=== PATIENT | female | born 2000 | race Caucasian/White ===

== ENCOUNTER 2020-09-08 14:20 | Emergency (ER) | payer BC, MEDICAID ==
--- NOTE | 2020-09-08 16:35 | EDM.PDOC ---
ED HPI GENERAL MEDICAL PROBLEM - General Chief Complaint: Abdominal Pain Stated Complaint: PAIN IN ABD Time Seen by Provider: 09/08/20 16:33 Source of Information: Reports: Patient, Family History Limitations: Reports: No Limitations - History of Present Illness INITIAL COMMENTS - FREE TEXT/NARRATIVE: pt has not had a period since early jun. She has had numerous preg test that have been neg. She had her urine checked recently at that was clear. She has a history of some large ovarian cysts. Onset: Gradual Duration: Day(s): Location: Reports: Abdomen, Other (no period since Jun. ) Associated Symptoms: Reports: No Other Symptoms Pelvic Pain Score (Numeric/FACES): 7 - Related Data Allergies Allergy/AdvReac Type Severity Reaction Status Date / Time amoxicillin Allergy Hives Verified 09/08/20 15:39 dog dander Allergy Rash Verified 09/08/20 15:39 egg Allergy Rash Verified 09/08/20 15:39 milk Allergy Edema Verified 09/08/20 15:39 orange Allergy Rash Verified 09/08/20 15:39 tomato Allergy Rash Verified 09/08/20 15:39 CATS Allergy Rash Uncoded 09/08/20 15:39 SLIPPY [place] BACK Allergy Rash Uncoded 09/08/20 15:39 Home Meds: Home Meds Albuterol Sulfate [Albuterol Sulfate Hfa] 8.5 gm IH ASDIRECTED PRN 09/08/20 [History] Past Medical History HEENT History: Reports: None Cardiovascular History: Reports: None Respiratory History: Reports: Asthma Genitourinary History: Reports: None 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, 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 Musculoskeletal History: Reports: None Neurological History: Reports: None Psychiatric History: Reports: None Endocrine/Metabolic History: Reports: None Hematologic History: Reports: None Immunologic History: Reports: None Oncologic (Cancer) History: Reports: None Dermatologic History: Reports: Psoriasis - Infectious Disease History Infectious Disease History: Reports: None - Past Surgical History Other GI Surgeries/Procedures: LAP Social & Family History - Tobacco Use Tobacco Use Status *Q: Never Tobacco User - Caffeine Use Caffeine Use: Reports: None - Recreational Drug Use Recreational Drug Use: No ED ROS GENERAL - Review of Systems Review Of Systems: See Below Constitutional: Reports: No Symptoms HEENT: Reports: No Symptoms Respiratory: Reports: No Symptoms Cardiovascular: Reports: No Symptoms Endocrine: Reports: No Symptoms GI/Abdominal: Reports: No Symptoms, Abdominal Pain, Other (lower abdomanal pain) : Reports: No Symptoms Musculoskeletal: Reports: No Symptoms Skin: Reports: No Symptoms ED EXAM, GI/ABD - Physical Exam Exam: See Below Text/Narrative:: pt arrived with pain in the lower abdoman and a history of endometrosuis Exam Limited By: No Limitations General Appearance: Alert, Anxious, Moderate Distress Ears: Normal TMs Nose: Normal Inspection Throat/Mouth: Normal Inspection Head: Atraumatic Neck: Normal Inspection Respiratory/Chest: No Respiratory Distress Cardiovascular: Regular Rate, Rhythm GI/Abdominal Exam: Other (mild lower abdomanal tenderness) (Female) Exam: Deferred Rectal (Female) Exam: Deferred Back Exam: Normal Inspection Extremities: Normal Inspection Neurological: Alert, Oriented, Normal Cognition Psychiatric: Normal Affect Course - Vital Signs Last Recorded V/S: Last Vital Signs Temp 37.4 C 09/08/20 15:31 Pulse 88 09/08/20 15:31 Resp 16 09/08/20 15:31 BP Pulse Ox 99 09/08/20 15:31 - Orders/Labs/Meds Orders: Active Orders 24 hr Category Date Time Status Pelvis Non OB Comp [US] Stat Exams 09/08/20 16:31 Ordered Transvaginal Non OB [US] Stat Exams 09/08/20 Ordered Labs: Laboratory Tests 09/08/20 09/08/20 09/08/20 Range/Units 16:38 16:44 16:44 WBC 8.6 (4.5-11.0) K/uL RBC 4.47 (3.30-5.50) M/uL Hgb 13.1 (12.0-15.0) g/dL Hct 38.9 (36.0-48.0) % MCV 87 (80-98) fL MCH 29 (27-31) pg MCHC 34 (32-36) % Plt Count 292 (150-400) K/uL Neut % (Auto) 62 (36-66) % Lymph % (Auto) 24 (24-44) % [place] % (Auto) 8 H (2-6) % Eos % (Auto) 6 H (2-4) % Baso % (Auto) 1 (0-1) % Sodium (140-148) mmol/L Potassium (3.6-5.2) mmol/L Chloride (100-108) mmol/L Carbon Dioxide (21-32) mmol/L Anion Gap (5.0-14.0) mmol/L BUN (7-18) mg/dL Creatinine (0.6-1.0) mg/dL Est Cr Clr Drug Dosing Estimated GFR (MDRD) (>60) Glucose (74-106) mg/dL Calcium (8.5-10.1) mg/dL Total Bilirubin (0.2-1.0) mg/dL AST (15-37) U/L ALT (12-78) U/L Alkaline Phosphatase (46-116) U/L C-Reactive Protein < 0.05 (0.0-0.3) mg/dL Total Protein (6.4-8.2) g/dL Albumin (3.4-5.0) g/dL Globulin (2.3-3.5) g/dL Albumin/Globulin Ratio (1.2-2.2) HCG, Quant 3 (0-6) mIU/mL 12/19/20 Range/Units 16:44 WBC (4.5-11.0) K/uL RBC (3.30-5.50) M/uL Hgb (12.0-15.0) g/dL Hct (36.0-48.0) % MCV (80-98) fL MCH (27-31) pg MCHC (32-36) % Plt Count (150-400) K/uL Neut % (Auto) (36-66) % Lymph % (Auto) (24-44) % [place] % (Auto) (2-6) % Eos % (Auto) (2-4) % Baso % (Auto) (0-1) % Sodium 141 (140-148) mmol/L Potassium 3.6 (3.6-5.2) mmol/L Chloride 105 (100-108) mmol/L Carbon Dioxide 26 (21-32) mmol/L Anion Gap 9.8 (5.0-14.0) mmol/L BUN 8 (7-18) mg/dL Creatinine 0.8 (0.6-1.0) mg/dL Est Cr Clr Drug Dosing TNP Estimated GFR (MDRD) > 60 (>60) Glucose 111 H (74-106) mg/dL Calcium 8.4 L (8.5-10.1) mg/dL Total Bilirubin 0.5 (0.2-1.0) mg/dL AST 9 L (15-37) U/L ALT 32 (12-78) U/L Alkaline Phosphatase 58 (46-116) U/L C-Reactive Protein (0.0-0.3) mg/dL Total Protein 6.7 (6.4-8.2) g/dL Albumin 3.7 (3.4-5.0) g/dL Globulin 3.0 (2.3-3.5) g/dL Albumin/Globulin Ratio 1.2 (1.2-2.2) HCG, Quant (0-6) mIU/mL - Re-Assessments/Exams Free Text/Narrative Re-Assessment/Exam: 09/08/20 18:00 pelvic US was neg for ovarian cyst. Her quantative preg test was neg. will refer to obgyn. Departure - Departure Time of Disposition: 17:45 Disposition: Home, Self-Care 01 Condition: Fair Clinical Impression: Endometriosis, Polycystic ovaries - Discharge Information Referrals: PCP,None [Primary Care Provider] - Forms: ED Department Discharge Care Plan Goals: appt with automobile body customizer [place] for further work up. tylenol and motrin for pain. Sepsis Event Note (ED) - Evaluation Sepsis Screening Result: No Definite Risk - Focused Exam Vital Signs: Vital Signs Temp Pulse Resp Pulse Ox 09/08/20 15:31 37.4 C 88 16 99 - My Orders Last 24 Hours: My Active Orders 09/08/20 Transvaginal Non OB [US] Stat 09/08/20 16:31 Pelvis Non OB Comp [US] Stat - Assessment/Plan Last 24 Hours: My Active Orders 09/08/20 Transvaginal Non OB [US] Stat 09/08/20 16:31 Pelvis Non OB Comp [US] Stat
--- NOTE | 2020-09-08 18:11 | CRLUS ---
INDICATION: Possible ovarian cyst with pelvic pain. TECHNIQUE: Transabdominal and transvaginal pelvic ultrasound performed including grayscale/2D, color Doppler, and spectral Doppler imaging with the latter imaging performed to confirm blood flow in the ovaries and exclude ovarian torsion. FINDINGS: Uterus measures 7.3 x 4.7 x 5.1 cm. Right ovary measures 3.7 x 2.5 x 2.4 cm and left ovary measures 2.8 x 1.9 x 2.9 cm. No myometrial masses. The endometrial stripe in the fundal region is mildly bulbous but still falls within normal limits and is homogeneous measuring 8-9 mm in transverse diameter. No discrete focal abnormalities in the endometrium. Moderate amount of complex fluid in the pelvis posteriorly contains internal echoes/debris and this could be related to hemorrhagic products or other complex inflammatory fluid. Etiology of this fluid is uncertain. Multiple simple and complex cysts in follicles which are very small in size in both ovaries should be physiologic. One of these small cysts or follicles in the right ovary contains internal debris and is likely a tiny hemorrhagic cyst. Arterial and venous blood flow is confirmed to both ovaries. The follicles in the left ovary have a peripheral predominance. Remainder negative. IMPRESSION: 1. Moderate amount of complex fluid in the pelvis posteriorly contains internal echoes and debris and could be related to hemorrhagic products from a ruptured hemorrhagic ovarian cyst but such fluid is not specific and can also be seen related to an inflammatory etiology or other etiologies. 2. The ovaries are unremarkable containing multiple simple and complex follicles and cysts which are all very small in size with one very small-sized hemorrhagic cyst in the right ovary. Arterial and venous blood flow confirmed to both ovaries without evidence of ovarian torsion. No dominant hemorrhagic ovarian cyst in either ovary. 3. Uterus and endometrium unremarkable. Dictated by Basil Leal MD @ Sep 08 2020 6:09PM Signed by Dr. Basil Leal @ Sep 08 2020 6:09PM
== END 2020-09-08 18:04 | disposition home or self-care (01) ==
LOC: JP.ED 14:20
DX: N80.9 Endometriosis, unspecified (principal); J45.909 Unspecified asthma, uncomplicated; E28.2 Polycystic ovarian syndrome; Z88.1 Allergy status to other antibiotic agents; Z91.048 Other nonmedicinal substance allergy status; Z91.012 Allergy to eggs; Z91.011 Allergy to milk products; Z91.018 Allergy to other foods
CPT/HCPCS: 36415; 76830; 76856; 80053; 84702; 85025; 86140; 99282; 99284-25

== ENCOUNTER 2020-11-10 20:09 | Emergency (ER) | payer BC ==
[2020-11-10] MEDS ORDERED: Ondansetron 4 MG/2 ML SDV IVPUSH ONE (20:14)
[2020-11-10] MEDS ORDERED: HYDROmorphone 0.5 MG/0.5 ML Syringe IVPUSH ONE (20:14)
[2020-11-10] MEDS ORDERED: Sodium Chloride 0.9% 1,000 ML IV SCH (20:15)
[2020-11-10] MEDS ORDERED: Acetaminophen/oxyCODONE 325-5 MG Tab PO PRN (22:09)
--- NOTE | 2020-11-10 22:10 | EDM.PDOC ---
ED HPI GENERAL MEDICAL PROBLEM - General Chief Complaint: Abdominal Pain Stated Complaint: ABDOMINAL PAIN Time Seen by Provider: 11/10/20 20:20 Source of Information: Reports: Patient History Limitations: Reports: No Limitations - History of Present Illness INITIAL COMMENTS - FREE TEXT/NARRATIVE: pt arrived with very severe pelvic pain which had come on suddenly. Her period was late. Onset: Today, Sudden Duration: Hour(s): Location: Reports: Abdomen Associated Symptoms: Reports: No Other Symptoms, Nausea/Vomiting Lower Abdominal Pain Score (Numeric/FACES): 8 - Related Data Allergies Allergy/AdvReac Type Severity Reaction Status Date / Time amoxicillin Allergy Hives Verified 11/10/20 20:43 dog dander Allergy Rash Verified 11/10/20 20:43 egg Allergy Rash Verified 11/10/20 20:43 milk Allergy Edema Verified 11/10/20 20:43 orange Allergy Rash Verified 11/10/20 20:43 tomato Allergy Rash Verified 11/10/20 20:43 CATS Allergy Rash Uncoded 11/10/20 20:43 SLIPPY [place] BACK Allergy Rash Uncoded 11/10/20 20:43 Home Meds: Home Meds Albuterol Sulfate [Albuterol Sulfate Hfa] 8.5 gm IH ASDIRECTED PRN 09/08/20 [History] Loratadine [Claritin] 1 tab PO DAILY 11/10/20 [History] Past Medical History HEENT History: Reports: None Cardiovascular History: Reports: None Respiratory History: Reports: Asthma Genitourinary History: Reports: None 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, 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 Musculoskeletal History: Reports: None Neurological History: Reports: None Psychiatric History: Reports: None Endocrine/Metabolic History: Reports: None Hematologic History: Reports: None Immunologic History: Reports: None Oncologic (Cancer) History: Reports: None Dermatologic History: Reports: Psoriasis - Infectious Disease History Infectious Disease History: Reports: None - Past Surgical History Other GI Surgeries/Procedures: LAP Social & Family History - Family History Family Medical History: No Pertinent Family History - Tobacco Use Tobacco Use Status *Q: Never Tobacco User - Caffeine Use Caffeine Use: Reports: None - Recreational Drug Use Recreational Drug Use: No ED ROS GENERAL - Review of Systems Review Of Systems: See Below Constitutional: Reports: No Symptoms HEENT: Reports: No Symptoms Respiratory: Reports: No Symptoms Cardiovascular: Reports: No Symptoms Endocrine: Reports: No Symptoms GI/Abdominal: Reports: Abdominal Pain, Other ( severe lower pelvic pain. ) : Reports: No Symptoms Musculoskeletal: Reports: No Symptoms Skin: Reports: No Symptoms ED EXAM, GI/ABD - Physical Exam Exam: See Below Text/Narrative:: pt has a history of poycystic ovaries and she thinks she could be . Exam Limited By: No Limitations General Appearance: Alert, Anxious, Severe Distress, Other ( pt was crying out on arrival. ) Ears: Normal TMs Nose: Normal Inspection Throat/Mouth: Normal Inspection Head: Atraumatic Neck: Normal Inspection Respiratory/Chest: No Respiratory Distress Cardiovascular: Regular Rate, Rhythm GI/Abdominal Exam: Other ( Pt is tender in the suprapupic area. ) (Female) Exam: Deferred Rectal (Female) Exam: Deferred Back Exam: Normal Inspection Extremities: Normal Inspection Neurological: Alert, Oriented, Normal Cognition Course - Vital Signs Last Recorded V/S: Last Vital Signs Temp 36.7 C 11/10/20 20:44 Pulse 112 H 11/10/20 20:44 Resp 20 11/10/20 20:44 BP 127/85 11/10/20 20:44 Pulse Ox 96 11/10/20 20:44 - Orders/Labs/Meds Orders: Active Orders 24 hr Category Date Time Status Pelvis Non OB Ltd [US] Stat Exams 11/10/20 20:21 Taken VL Duplex Abd Pel Ret Ltd [US] Stat Exams 11/10/20 21:59 Taken Acetaminophen/oxyCODONE [Percocet 325-5 MG] Med 11/10/20 22:09 Active 1 tab PO ONETIME PRN Sodium Chloride 0.9% [Normal Saline] 1,000 ml Med 11/10/20 20:15 Active IV ASDIRECTED Medication Orders Sodium Chloride (Normal Saline) 1,000 mls @ 999 mls/hr IV ASDIRECTED MIRI Last Admin: 11/10/20 20:25 Dose: 999 mls/hr Documented by: FLOR Oxycodone/Acetaminophen (Percocet 325-5 Mg) 1 tab PO ONETIME PRN PRN Reason: Abdominal Pain Labs: Laboratory Tests 11/10/20 11/10/20 11/10/20 Range/Units 20:29 20:29 20:29 WBC 9.8 (4.5-11.0) K/uL RBC 4.60 (3.30-5.50) M/uL Hgb 13.8 (12.0-15.0) g/dL Hct 38.9 (36.0-48.0) % MCV 85 (80-98) fL MCH 30 (27-31) pg MCHC 36 (32-36) % Plt Count 279 (150-400) K/uL Neut % (Auto) 62 (36-66) % Lymph % (Auto) 25 (24-44) % [place] % (Auto) 8 H (2-6) % Eos % (Auto) 5 H (2-4) % Baso % (Auto) 0 (0-1) % Sodium 140 (140-148) mmol/L Potassium 3.3 L (3.6-5.2) mmol/L Chloride 106 (100-108) mmol/L Carbon Dioxide 23 (21-32) mmol/L Anion Gap 14.3 H (5.0-14.0) mmol/L BUN 10 (7-18) mg/dL Creatinine 0.8 (0.6-1.0) mg/dL Est Cr Clr Drug Dosing 88.72 mL/min Estimated GFR (MDRD) > 60 (>60) Glucose 155 H (74-106) mg/dL Calcium 9.0 (8.5-10.1) mg/dL Total Bilirubin 0.5 (0.2-1.0) mg/dL AST 14 L (15-37) U/L ALT 23 (12-78) U/L Alkaline Phosphatase 67 (46-116) U/L Total Protein 6.8 (6.4-8.2) g/dL Albumin 3.7 (3.4-5.0) g/dL Globulin 3.1 (2.3-3.5) g/dL Albumin/Globulin Ratio 1.2 (1.2-2.2) HCG, Quant 3 (0-6) mIU/mL Urine Color (YELLOW) Urine Appearance (CLEAR) Urine pH (5.0-8.0) Ur Specific [place] (1.008-1.030) Urine Protein (NEGATIVE) mg/dL Urine Glucose (UA) (NEGATIVE) mg/dL Urine Ketones (NEGATIVE) mg/dL Urine Occult Blood (NEGATIVE) Urine Nitrite (NEGATIVE) Urine Bilirubin (NEGATIVE) Urine Urobilinogen (0.2-1.0) EU/dL Ur Leukocyte Esterase (NEGATIVE) Urine RBC (0-5) Urine WBC (0-5) Ur Epithelial Cells Amorphous Sediment Urine Bacteria Urine Mucus 11/10/20 Range/Units 20:47 WBC (4.5-11.0) K/uL RBC (3.30-5.50) M/uL Hgb (12.0-15.0) g/dL Hct (36.0-48.0) % MCV (80-98) fL MCH (27-31) pg MCHC (32-36) % Plt Count (150-400) K/uL Neut % (Auto) (36-66) % Lymph % (Auto) (24-44) % [place] % (Auto) (2-6) % Eos % (Auto) (2-4) % Baso % (Auto) (0-1) % Sodium (140-148) mmol/L Potassium (3.6-5.2) mmol/L Chloride (100-108) mmol/L Carbon Dioxide (21-32) mmol/L Anion Gap (5.0-14.0) mmol/L BUN (7-18) mg/dL Creatinine (0.6-1.0) mg/dL Est Cr Clr Drug Dosing mL/min Estimated GFR (MDRD) (>60) Glucose (74-106) mg/dL Calcium (8.5-10.1) mg/dL Total Bilirubin (0.2-1.0) mg/dL AST (15-37) U/L ALT (12-78) U/L Alkaline Phosphatase (46-116) U/L Total Protein (6.4-8.2) g/dL Albumin (3.4-5.0) g/dL Globulin (2.3-3.5) g/dL Albumin/Globulin Ratio (1.2-2.2) HCG, Quant (0-6) mIU/mL Urine Color Yellow (YELLOW) Urine Appearance Clear (CLEAR) Urine pH 8.5 H (5.0-8.0) Ur Specific [place] 1.020 (1.008-1.030) Urine Protein Negative (NEGATIVE) mg/dL Urine Glucose (UA) Negative (NEGATIVE) mg/dL Urine Ketones Negative (NEGATIVE) mg/dL Urine Occult Blood Negative (NEGATIVE) Urine Nitrite Negative (NEGATIVE) Urine Bilirubin Negative (NEGATIVE) Urine Urobilinogen 0.2 (0.2-1.0) EU/dL Ur Leukocyte Esterase Negative (NEGATIVE) Urine RBC 0-5 (0-5) Urine WBC 0-5 (0-5) Ur Epithelial Cells Few Amorphous Sediment Occasional Urine Bacteria Occasional Urine Mucus Few Meds: Medications Generic Name Dose Route Start Last Admin Trade Name Freq PRN Reason Stop Dose Admin Sodium Chloride 1,000 mls @ 999 mls/hr 11/10/20 20:15 11/10/20 20:25 Normal Saline IV 999 mls/hr ASDIRECTED MIRI Administration Oxycodone/Acetaminophen 1 tab 11/10/20 22:09 Percocet 325-5 Mg PO ONETIME PRN Abdominal Pain Discontinued Medications Generic Name Dose Route Start Last Admin Trade Name Freq PRN Reason Stop Dose Admin Hydromorphone HCl 0.5 mg 11/10/20 20:14 11/10/20 20:27 Dilaudid IVPUSH 11/10/20 20:15 0.5 mg ONETIME ONE Administration Ondansetron HCl 4 mg 11/10/20 20:14 11/10/20 20:32 Zofran IVPUSH 11/10/20 20:15 4 mg ONETIME ONE Administration - Re-Assessments/Exams Free Text/Narrative Re-Assessment/Exam: 11/10/20 22:19 pt was given dilaudid .5 mg. She did get good relief. She had labs and her quantative hcg was neg. She is very early however. She had a US which showed some free fluid so she could have ruptured a ovarian cyst. Departure - Departure Time of Disposition: 22:10 Disposition: Home, Self-Care 01 Condition: Fair Clinical Impression: Pelvic pain, Ruptured ovarian cyst - Discharge Information Referrals: PCP,None [Primary Care Provider] - Forms: ED Department Discharge Care Plan Goals: rtc in 5 days for a repeat quantative hcg. norco 5/325 q6h prn for pain, #[address] should notify her of the repeat quantative HCG Sepsis Event Note (ED) - Evaluation Sepsis Screening Result: Possible Sepsis Risk - Focused Exam Vital Signs: Vital Signs Temp Pulse Resp BP Pulse Ox 11/10/20 20:44 36.7 C 112 H 20 127/85 96 11/10/20 20:16 36.7 C 112 H 26 H 127/85 100 - My Orders Last 24 Hours: My Active Orders 11/10/20 20:15 Sodium Chloride 0.9% [Normal Saline] 1,000 ml IV ASDIRECTED 11/10/20 20:21 Pelvis Non OB Ltd [US] Stat 11/10/20 21:59 VL Duplex Abd Pel Ret Ltd [US] Stat 11/10/20 22:09 Acetaminophen/oxyCODONE [Percocet 325-5 MG] 1 tab PO ONETIME PRN - Assessment/Plan Last 24 Hours: My Active Orders 11/10/20 20:15 Sodium Chloride 0.9% [Normal Saline] 1,000 ml IV ASDIRECTED 11/10/20 20:21 Pelvis Non OB Ltd [US] Stat 11/10/20 21:59 VL Duplex Abd Pel Ret Ltd [US] Stat 11/10/20 22:09 Acetaminophen/oxyCODONE [Percocet 325-5 MG] 1 tab PO ONETIME PRN
--- NOTE | 2020-11-12 09:48 | US ---
VL Duplex Abd Pel Ret Ltd, Pelvis Non OB Ltd CLINICAL HISTORY: Left pelvic pain FINDINGS: Real-time transabdominal and transvaginal images were obtained through the pelvis. Uterus measures 8.4 x 3.4 x 4.8 cm. No mass is identified. The endometrial stripe measures 7 mm. Right ovary measures 2.9 x 2.9 x 1.5 cm. Left ovary measures 4.8 x 3.8 x 2.2 cm. It contains 1.8 x 1.2 x 1.8 cm cyst. There is normal flow in both. There is some free fluid in the cul-de-sac IMPRESSION: Small amount of free pelvic fluid. This is nonspecific 1.8 x 1.2 x 1.8 cm left the ovarian cyst
== END 2020-11-10 22:29 | disposition home or self-care (01) ==
LOC: JP.ED 20:09
DX: N83.202 Unspecified ovarian cyst, left side (principal); J45.909 Unspecified asthma, uncomplicated; Z88.0 Allergy status to penicillin; Z91.048 Other nonmedicinal substance allergy status; Z91.011 Allergy to milk products; Z91.012 Allergy to eggs; Z91.018 Allergy to other foods
CPT/HCPCS: 36415; 76857; 80053; 81001; 84702; 85025; 93976; 96374; 96375; 99284; J1170; J2405; J7030; 99283

== ENCOUNTER 2021-09-30 00:24 | Inpatient (IN) | payer OTHER ==
[2021-09-30 05:06] LABS: CORONAVIRUS COVID-19 NAA NEGATIVE (NEGATIVE)
[2021-09-30] MEDS ORDERED: Sodium Chloride 0.9% 10 ML Syringe FLUSH PRN ×3 (05:08→06:54)
[2021-09-30] MEDS: Lactated Ringers 1,000 ML IV ONE ×2 (05:10→07:00)
[2021-09-30] MEDS ORDERED: ePHEDrine 50 MG/ML SDV IVPUSH PRN (05:12)
[2021-09-30] MEDS ORDERED: Naloxone 0.4 MG/ML SDV IVPUSH PRN (05:12)
[2021-09-30] MEDS ORDERED: diphenhydrAMINE 50 MG/ML SDV IVPUSH PRN ×2 (05:12)
[2021-09-30] MEDS ORDERED: Sodium Chloride 0.9% 1,000 ML IV ONE (05:13)
[2021-09-30] MEDS ORDERED: Ropivacaine 200 MG in Premix Bag 1 BAG EPIDUR SCH (05:15)
[2021-09-30] MEDS ORDERED: Clindamycin Phosphate 900 MG/6 ML SDV IV SCH (05:15)
[2021-09-30] MEDS: Clindamycin Phosphate 900 MG in Sodium Chloride 0.9% 100 ML IV SCH ×2 (06:03→15:21)
[2021-09-30] MEDS: Lactated Ringers 1,000 ML IV SCH ×2 (06:05→10:09)
[2021-09-30] MEDS ORDERED: Ropivacaine 100 ML ONE (06:53)
[2021-09-30] MEDS ORDERED: Lactated Ringers 500 ML IV SCH (07:00)
--- NOTE | 2021-09-30 07:13 | PCM.LDHP ---
L&D History of Present Illness - General Date of Service: 09/30/21 (labor) Admit Problem/Dx: Patient Status Order with Admit Dx/Problem 09/30/21 05:09 Patient Status [ADT] Routine 09/30/21 06:56 Patient Status [ADT] Routine Admission Diagnosis/Problem Admission Diagnosis/Problem Labor established Source of Information: Patient History Limitations: Reports: No Limitations - History of Present Illness Timing/Duration: Reports: minutes: (2) Location, : Reports: Lower back Quality: Reports: Pressure Severity: Severe Worsens with: Reports: None - Related Data Allergies/Adverse Reactions: Allergies Allergy/AdvReac Type Severity Reaction Status Date / Time amoxicillin Allergy Hives Verified 09/30/21 00:35 dog dander Allergy Rash Verified 09/30/21 00:35 egg Allergy Rash Verified 09/30/21 00:35 milk Allergy Edema Verified 09/30/21 00:35 orange Allergy Rash Verified 09/30/21 00:35 tomato Allergy Rash Verified 09/30/21 00:35 CATS Allergy Rash Uncoded 11/10/20 20:43 SLIPPY EL[place] BACK Allergy Rash Uncoded 11/10/20 20:43 Home Medications: Home Meds Albuterol Sulfate [Albuterol Sulfate Hfa] 8.5 gm IH ASDIRECTED PRN 09/08/20 [History] Folic Acid 0.4 mg PO DAILY 09/06/21 [History] Pnv No.95/Ferrous Fum/Folic AC [ Caplet] 1 tab PO DAILY 09/06/21 [History] Past Medical History HEENT History: Reports: None Cardiovascular History: Reports: None Respiratory History: Reports: Asthma Genitourinary History: Reports: None 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: Endometriosis, 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, : 1 Para: 0 LMP (Approximate): Musculoskeletal History: Reports: None Neurological History: Reports: None Psychiatric History: Reports: None Endocrine/Metabolic History: Reports: None Hematologic History: Reports: None Immunologic History: Reports: None Oncologic (Cancer) History: Reports: None Dermatologic History: Reports: Psoriasis - Infectious Disease History Infectious Disease History: Reports: None - Past Surgical History Other GI Surgeries/Procedures: Laproscopic procedure for endometrosis Social & Family History - Family History Family Medical History: No Pertinent Family History - Tobacco Use Tobacco Use Status *Q: Never Tobacco User - Caffeine Use Caffeine Use: Reports: None - Recreational Drug Use Recreational Drug Use: No H&P Review of Systems - Review of Systems: Review Of Systems: See Below L&D Exam - Exam Exam: See Below - Vital Signs Vital Signs: Last Vital Signs Temp 97.2 F 09/30/21 03:38 Pulse 83 09/30/21 03:38 Resp 16 09/30/21 06:31 BP 127/91 H 09/30/21 03:38 Pulse Ox 97 09/30/21 03:38 Weight: 190 lb 14.725 oz - OB Specific Contraction Duration (sec): 45 - 115 Contraction Frequency (min): 1.5 - 3.5 Contraction Intensity: Moderate Movement: Active Heart Tones: Present Heart Rate (FHR) Variability: Moderate (6-25 bpm) Presentation: Vertex - Higuera Score Higuera Score Cervix Position: Anterior Higuera Score Consistency: Soft Higuera Score Effacement: >80% Higuera Score Dilation: 3-4 cm Higuera Score 's Station: -1 ,0 Higuera Score Total: 11 - Exam General: Alert, Oriented HEENT: PERRLA, Mucosa Moist & [place] Neck: Supple Lungs: Normal Respiratory Effort Cardiovascular: Regular Rate GI/Abdominal Exam: Soft Rectal Exam: Normal Exam Genitourinary: Normal external exam, Cervical dilitation, Enlarged uterus Back Exam: Normal Inspection, Full Range of Motion Extremities: No Pedal Edema, Normal Capillary Refill Skin: Warm Neurological: Cranial Nerves Intact Psychiatric: Alert, Normal Affect, Normal Mood - Patient Data Lab Results Last 24 hrs: Laboratory Results - last 24 hr 09/30/21 09/30/21 09/30/21 Range/Units 00:34 03:10 03:36 WBC 15.3 H (3.2-11.0) K/uL RBC 4.20 (3.77-5.24) M/uL Hgb 12.8 (11.2-15.5) Hct 36.3 (34.3-46.0) % MCV 86.4 (81.4-99.0) fL MCH 30.5 L (31.6-35.5) pg MCHC 35.3 (31.6-35.5) g/dL Plt Count 153 (130-375) K/uL Urine Color Yellow (YELLOW) Urine Appearance Turbid A (CLEAR) Urine pH 6.5 (5.0-8.0) Ur Specific [place] 1.010 (1.008-1.030) Urine Protein Negative (NEGATIVE) mg/dL Urine Glucose (UA) Negative (NEGATIVE) mg/dL Urine Ketones Negative (NEGATIVE) mg/dL Urine Occult Blood Trace-intact H (NEGATIVE) Urine Nitrite Negative (NEGATIVE) Urine Bilirubin Negative (NEGATIVE) Urine Urobilinogen 0.2 (0.2-1.0) EU/dL Ur Leukocyte Esterase Negative (NEGATIVE) Urine RBC 0-5 (0-5) Urine WBC 5-10 H (0-5) Ur Epithelial Cells Moderate Amorphous Sediment Not seen Urine Bacteria Few Urine Mucus Not seen Urine Opiates Screen Negative (NEGATIVE) Ur Oxycodone Screen Negative (NEGATIVE) Urine Methadone Screen Negative (NEGATIVE) Ur Propoxyphene Screen Negative (NEGATIVE) Ur Barbiturates Screen Negative (NEGATIVE) Ur Tricyclics Screen Negative (NEGATIVE) Ur Phencyclidine Scrn Negative (NEGATIVE) Ur Amphetamine Screen Negative (NEGATIVE) U Methamphetamines Scrn Negative (NEGATIVE) Urine MDMA Screen Negative (NEGATIVE) U Benzodiazepines Scrn Negative (NEGATIVE) U Cocaine Metab Screen Negative (NEGATIVE) U Marijuana (THC) Screen Negative (NEGATIVE) Influenza Type A RNA (NEGATIVE) RSV RNA (INAAT) (NEGATIVE) Influenza Type B RNA (NEGATIVE) SARS-CoV-2 RNA (MARIAH) (NEGATIVE) 09/30/21 Range/Units 04:00 WBC (3.2-11.0) K/uL RBC (3.77-5.24) M/uL Hgb (11.2-15.5) Hct (34.3-46.0) % MCV (81.4-99.0) fL MCH (31.6-35.5) pg MCHC (31.6-35.5) g/dL Plt Count (130-375) K/uL Urine Color (YELLOW) Urine Appearance (CLEAR) Urine pH (5.0-8.0) Ur Specific [place] (1.008-1.030) Urine Protein (NEGATIVE) mg/dL Urine Glucose (UA) (NEGATIVE) mg/dL Urine Ketones (NEGATIVE) mg/dL Urine Occult Blood (NEGATIVE) Urine Nitrite (NEGATIVE) Urine Bilirubin (NEGATIVE) Urine Urobilinogen (0.2-1.0) EU/dL Ur Leukocyte Esterase (NEGATIVE) Urine RBC (0-5) Urine WBC (0-5) Ur Epithelial Cells Amorphous Sediment Urine Bacteria Urine Mucus Urine Opiates Screen (NEGATIVE) Ur Oxycodone Screen (NEGATIVE) Urine Methadone Screen (NEGATIVE) Ur Propoxyphene Screen (NEGATIVE) Ur Barbiturates Screen (NEGATIVE) Ur Tricyclics Screen (NEGATIVE) Ur Phencyclidine Scrn (NEGATIVE) Ur Amphetamine Screen (NEGATIVE) U Methamphetamines Scrn (NEGATIVE) Urine MDMA Screen (NEGATIVE) U Benzodiazepines Scrn (NEGATIVE) U Cocaine Metab Screen (NEGATIVE) U Marijuana (THC) Screen (NEGATIVE) Influenza Type A RNA Negative (NEGATIVE) RSV RNA (INAAT) Negative (NEGATIVE) Influenza Type B RNA Negative (NEGATIVE) SARS-CoV-2 RNA (MARIAH) Negative (NEGATIVE) Result Diagrams: 09/30/21 03:36 - Problem List (1) SNOMED Code(s): 90980479 ICD Code: Z34.90 - ENCNTR FOR SUPRVSN OF NORMAL , UNSP, UNSP TRIMESTER Status: Acute Current Visit: Yes Qualifiers: Weeks of gestation: 37 weeks Qualified Code(s): Z3A.37 - 37 weeks gestation of (2) delivery (maternal condition) SNOMED Code(s): 142931483, 527920246 ICD Code: O60.10X0 - LABOR W DELIVERY, UNSP TRIMESTER, UNSP Status: Acute Current Visit: Yes Problem List Initiated/Reviewed/Updated: Yes Orders Last 24hrs: Active Orders 24 hr Category Date Time Status Patient Status [ADT] Routine ADT 09/30/21 06:56 Ordered Communication Order [RC] ASDIRECTED Care 09/30/21 05:09 Active Communication Order [RC] ASDIRECTED Care 09/30/21 06:56 Ordered Communication Order [RC] ROUTINE Care 09/30/21 05:12 Active Communication Order [RC] ROUTINE Care 09/30/21 05:12 Active Communication Order [RC] ROUTINE Care 09/30/21 05:12 Active Heart Tones [RC] PER UNIT ROUTINE Care 09/30/21 06:56 Ordered Non Stress Test [RC] Click to Edit Care 09/30/21 06:56 Ordered Notify Provider Vital Signs [RC] PRN Care 09/30/21 05:10 Active Notify Provider Vital Signs [RC] PRN Care 09/30/21 06:54 Ordered Notify Provider [RC] PRN Care 09/30/21 05:09 Active Notify Provider [RC] PRN Care 09/30/21 06:56 Ordered OB Check [OM.PC] Click to Edit Care 09/30/21 00:28 Ordered Oxygen Therapy [RC] ASDIRECTED Care 09/30/21 05:12 Active PCEA Epidural [RC] ASDIRECTED Care 09/30/21 05:12 Active PCEA Epidural [RC] ASDIRECTED Care 09/30/21 05:13 Active Peripheral IV Care [RC] . DIRECTED Care 09/30/21 05:13 Active Pulse Oximetry [RC] ASDIRECTED Care 09/30/21 05:12 Active Vital Signs [RC] PER UNIT ROUTINE Care 09/30/21 05:09 Active Vital Signs [RC] PER UNIT ROUTINE Care 09/30/21 05:12 Active Vital Signs [RC] PER UNIT ROUTINE Care 09/30/21 06:56 Ordered Regular Diet [DIET] Diet 09/30/21 Breakfast Active Clindamycin Phosphate [Cleocin] 900 mg Med 09/30/21 05:30 Active Sodium Chloride 0.9% [Normal Saline AdvBag] 100 ml IV Q8H Lactated Ringers [Ringers, Lactated] 1,000 ml Med 09/30/21 06:00 Active IV ASDIRECTED Naloxone [Narcan] Med 09/30/21 05:12 Active 0.1 mg IVPUSH ASDIRECTED PRN Ropivacaine [Naropin 0.2%] 200 mg Med 09/30/21 05:15 Active Premix Bag 1 bag EPIDUR ASDIRECTED Sodium Chloride 0.9% [Saline Flush] Med 09/30/21 05:12 Active 10 ml FLUSH ASDIRECTED PRN Sodium Chloride 0.9% [Saline Flush] Med 09/30/21 06:54 Ordered 10 ml FLUSH ASDIRECTED PRN diphenhydrAMINE [Benadryl] Med 09/30/21 05:12 Active 25 mg IVPUSH Q6H PRN diphenhydrAMINE [Benadryl] Med 09/30/21 05:12 Active 50 mg IVPUSH Q6H PRN ePHEDrine [ePHEDrine sulfate] Med 09/30/21 05:12 Active 10 mg IVPUSH ASDIRECTED PRN Epidural Catheter Management [OM.PC] Routine Oth 09/30/21 05:12 Ordered Peripheral IV Insertion Pediatric [OM.PC] Routine Oth 09/30/21 05:12 Ordered Saline Lock Insert [OM.PC] Routine Oth 09/30/21 05:09 Ordered Saline Lock Insert [OM.PC] Routine Oth 09/30/21 06:56 Ordered Resuscitation Status Routine Resus Stat 09/30/21 05:08 Ordered Medication Orders Diphenhydramine HCl (Diphenhydramine 50 Mg/Ml Sdv) 25 mg IVPUSH Q6H PRN PRN Reason: Itching Diphenhydramine HCl (Diphenhydramine 50 Mg/Ml Sdv) 50 mg IVPUSH Q6H PRN PRN Reason: Itching Ephedrine Sulfate (Ephedrine 50 Mg/Ml Sdv) 10 mg IVPUSH ASDIRECTED PRN PRN Reason: Hypotension Ropivacaine 200 mg/ Premix 100 mls @ 0 mls/hr EPIDUR ASDIRECTED [facility] Clindamycin Phosphate 900 mg/ (Sodium Chloride) 106 mls @ 212 mls/hr IV Q8H [facility] Last Admin: 09/30/21 06:03 Dose: 212 mls/hr Documented by: PINOLAU Lactated Ringer's (Ringers, Lactated) 1,000 mls @ 125 mls/hr IV ASDIRECTED [facility] Last Admin: 09/30/21 06:05 Dose: 125 mls/hr Documented by: PINOLAU Naloxone HCl (Naloxone 0.4 Mg/Ml Sdv) 0.1 mg IVPUSH ASDIRECTED PRN PRN Reason: Oversedation Sodium Chloride (Sodium Chloride 0.9% 10 Ml Syringe) 10 ml FLUSH ASDIRECTED PRN PRN Reason: Keep Vein Open Sodium Chloride (Sodium Chloride 0.9% 10 Ml Syringe) 10 ml FLUSH ASDIRECTED PRN PRN Reason: Keep Vein Open Assessment/Plan Comment:: 09/30/21 21 year old presented in active labor during the night. She is 37 6/7 weeks gestation. PCN allergy and GBS positive Strip is cat two, Currently extra fluids and on her left side. No AROm until close to the end I talked with parents about possible c section if baby not tolerating pushing. HGB 12.8 PLT 153 Covid negative ABO A pos Epidural in place monitor closely for distress
--- NOTE | 2021-09-30 09:05 | PCM.PNLD ---
Labor Progress Note - VS & Meds Vital Signs: Last Vital Signs Temp 96.6 F L 09/30/21 08:07 Pulse 69 09/30/21 08:30 Resp 16 09/30/21 06:31 BP 121/72 09/30/21 08:04 Pulse Ox 100 09/30/21 08:30 Active Medications: Current Medications Diphenhydramine HCl (Diphenhydramine 50 Mg/Ml Sdv) 25 mg IVPUSH Q6H PRN PRN Reason: Itching Diphenhydramine HCl (Diphenhydramine 50 Mg/Ml Sdv) 50 mg IVPUSH Q6H PRN PRN Reason: Itching Ephedrine Sulfate (Ephedrine 50 Mg/Ml Sdv) 10 mg IVPUSH ASDIRECTED PRN PRN Reason: Hypotension Ropivacaine 200 mg/ Premix 100 mls @ 0 mls/hr EPIDUR ASDIRECTED [facility] Clindamycin Phosphate 900 mg/ (Sodium Chloride) 106 mls @ 212 mls/hr IV Q8H [facility] Last Admin: 09/30/21 06:03 Dose: 212 mls/hr Documented by: Lactated Ringer's (Ringers, Lactated) 1,000 mls @ 125 mls/hr IV ASDIRECTED [facility] Last Admin: 09/30/21 06:05 Dose: 125 mls/hr Documented by: Lactated Ringer's (Ringers, Lactated) 500 mls @ 999 mls/hr IV ASDIRECTED [facility] Oxytocin/Sodium Chloride (Pitocin In Ns 20 Units/1,000 Ml) 20 unit in 1,000 mls @ 2,997 mls/hr IV TITRATE [facility]; Protocol Naloxone HCl (Naloxone 0.4 Mg/Ml Sdv) 0.1 mg IVPUSH ASDIRECTED PRN PRN Reason: Oversedation Sodium Chloride (Sodium Chloride 0.9% 10 Ml Syringe) 10 ml FLUSH ASDIRECTED PRN PRN Reason: Keep Vein Open Sodium Chloride (Sodium Chloride 0.9% 10 Ml Syringe) 10 ml FLUSH ASDIRECTED PRN PRN Reason: Keep Vein Open Discontinued Medications Sodium Chloride (Normal Saline) 1,000 mls @ 999 mls/hr IV ONETIME ONE Stop: 09/30/21 06:13 Last Admin: 09/30/21 05:28 Dose: Not Given Documented by: Lactated Ringer's (Ringers, Lactated) 1,000 mls @ 999 mls/hr IV BOLUS ONE Stop: 09/30/21 06:00 Last Admin: 09/30/21 07:00 Dose: 999 mls/hr Documented by: Ropivacaine (Naropin 0.2%) Confirm Administered Dose 100 mls @ as directed .ROUTE .STK-MED ONE Stop: 09/30/21 06:54 Sodium Chloride (Sodium Chloride 0.9% 10 Ml Syringe) 10 ml FLUSH ASDIRECTED PRN PRN Reason: Keep Vein Open - Uterine Contractions Uterine Monitoring Mode: External [place] Contraction Frequency (min): 1.5-3 Contraction Duration (sec): 90-110 Contraction Intensity: Mild to Moderate Uterine Resting Tone: Soft - Monitoring Monitor Mode: External Ultrasound Heart Rate (FHR) Baseline: 125 Heart Rate (FHR) Per Doppler: 130 Heart Rate (FHR) Variability: Moderate (6-25 bpm) Accelerations: Present, 15x15 Decelerations: None Strip Review: Category I - Vaginal Exam Dilation (cm): 7 Effacement (Percent): 100 Station: 1 Cervical Position: Anterior Sterile Vaginal Exam Performed By: nicole rice Vaginal Exam Comment: AROM meconium - Labor Progress (Free Text) Labor Progress: Desera's blood pressure is up despite epidural. Will run PIH labs. Nice cervical change 100/1, meconium planning for vaginal delivery unless baby becomes distressed.
--- NOTE | 2021-09-30 10:51 | PCM.PNLD ---
Labor Progress Note - VS & Meds Vital Signs: Last Vital Signs Temp 96.6 F L 09/30/21 08:07 Pulse 63 09/30/21 10:25 Resp 16 09/30/21 06:31 BP 128/76 09/30/21 10:07 Pulse Ox 100 09/30/21 10:25 Active Medications: Current Medications Diphenhydramine HCl (Diphenhydramine 50 Mg/Ml Sdv) 25 mg IVPUSH Q6H PRN PRN Reason: Itching Diphenhydramine HCl (Diphenhydramine 50 Mg/Ml Sdv) 50 mg IVPUSH Q6H PRN PRN Reason: Itching Ephedrine Sulfate (Ephedrine 50 Mg/Ml Sdv) 10 mg IVPUSH ASDIRECTED PRN PRN Reason: Hypotension Ropivacaine 200 mg/ Premix 100 mls @ 0 mls/hr EPIDUR ASDIRECTED [facility] Clindamycin Phosphate 900 mg/ (Sodium Chloride) 106 mls @ 212 mls/hr IV Q8H [facility] Last Admin: 09/30/21 06:03 Dose: 212 mls/hr Documented by: Lactated Ringer's (Ringers, Lactated) 1,000 mls @ 125 mls/hr IV ASDIRECTED [facility] Last Admin: 09/30/21 10:09 Dose: 125 mls/hr Documented by: Lactated Ringer's (Ringers, Lactated) 500 mls @ 999 mls/hr IV ASDIRECTED [facility] Oxytocin/Sodium Chloride (Pitocin In Ns 20 Units/1,000 Ml) 20 unit in 1,000 mls @ 2,997 mls/hr IV TITRATE [facility]; Protocol Naloxone HCl (Naloxone 0.4 Mg/Ml Sdv) 0.1 mg IVPUSH ASDIRECTED PRN PRN Reason: Oversedation Sodium Chloride (Sodium Chloride 0.9% 10 Ml Syringe) 10 ml FLUSH ASDIRECTED PRN PRN Reason: Keep Vein Open Sodium Chloride (Sodium Chloride 0.9% 10 Ml Syringe) 10 ml FLUSH ASDIRECTED PRN PRN Reason: Keep Vein Open Discontinued Medications Sodium Chloride (Normal Saline) 1,000 mls @ 999 mls/hr IV ONETIME ONE Stop: 09/30/21 06:13 Last Admin: 09/30/21 05:28 Dose: Not Given Documented by: Lactated Ringer's (Ringers, Lactated) 1,000 mls @ 999 mls/hr IV BOLUS ONE Stop: 09/30/21 06:00 Last Admin: 09/30/21 07:00 Dose: 999 mls/hr Documented by: Ropivacaine (Naropin 0.2%) Confirm Administered Dose 100 mls @ as directed .ROUTE .STK-MED ONE Stop: 09/30/21 06:54 Sodium Chloride (Sodium Chloride 0.9% 10 Ml Syringe) 10 ml FLUSH ASDIRECTED PRN PRN Reason: Keep Vein Open - Uterine Contractions Uterine Monitoring Mode: External [place] Contraction Frequency (min): 1.5-3 Contraction Duration (sec): 90-110 Contraction Intensity: Mild to Moderate Uterine Resting Tone: Soft - Monitoring Monitor Mode: External Ultrasound Heart Rate (FHR) Baseline: 125 Heart Rate (FHR) Per Doppler: 130 Heart Rate (FHR) Variability: Moderate (6-25 bpm) Accelerations: Present, 15x15 Decelerations: None Strip Review: Category I - Vaginal Exam Dilation (cm): 10 Effacement (Percent): 100 Station: 2 Cervical Position: Anterior Sterile Vaginal Exam Performed By: nicole rice Vaginal Exam Comment: complete - Labor Progress (Free Text) Labor Progress: will labor down over the next 15-30 minutes Surgery notified of progress and for stand by if needed.
--- NOTE | 2021-09-30 13:07 | PCM.DEL ---
L & D Note - General Info Date of Service: 09/30/21 (vaginal delivery) Mother's Due Date: 10/15/21 - Delivery Note Labor: Spontaneous Delivery Outcome: Livebirth Delivery Method: Spontaneous Vaginal Delivery-Single Delivery Mode: Spontaneous Presentation: Vertex Nuchal Cord: Present, Reduced (times 2) Anesthesia Type: Epidural Amniotic Fluid Description: Meconium Stained Episiotomy Type: None Laceration: Labial Suture type: Chromic Suture size: 3-0 Placenta: Intact, Spontaneous Cord: 3 Vessels Estimated Blood Loss: 100 Resuscitation Needed: No [place]: Bulb Syringe, Stimulated, Warmed, [place] Used Provider: nicole rice. Score 1 min: 9 (color) Score 5 min: 9 (color) Second Stage Interventions: Reports: Second Nurse Reviewed Heart Tones, Laboring Down, Pushing Effectively, Pushing, McRobert's Position Delivery Comments (Free Text/Narrative):: 09/30/21 This 21 year old G1 now P1 who is 37 6/7 weeks delivered via over intact perineum in YAZAN position a male infant. He had a nuchal cord times 2 which were reduced. The was placed on mother's abdomen, he was dried and stimulated. Apgars of 9 & 9 all for color. He was bulb suctioned, transitioned well. and cried spontaneously. Active management of the the third stage and delayed cord clamping were done. Three vessel cord, weight 6-3. The placenta was expressed spontaneously intact. She had bilateral labial tears which were repaired with 3-0 vicryl running suture. No lacerations of the cervix, vagina, perineum or rectum were found. EBL 100 cc mother and baby to post in stable good condition. Infant to breast within the first 30 minutes of life. First stage 1058-7062 second stage 9270-1850 third stage 5259-9818 - General Info Date of Service: 09/30/21 Admission Dx/Problem (Free Text): Patient Status Order with Admit Dx/Problem 09/30/21 05:09 Patient Status [ADT] Routine 09/30/21 06:56 Patient Status [ADT] Routine Admission Diagnosis/Problem Admission Diagnosis/Problem Labor established Functional Status: Reports: Pain Controlled - Review of Systems General: Reports: No Symptoms HEENT: Reports: No Symptoms Pulmonary: Reports: No Symptoms Cardiovascular: Reports: No Symptoms Gastrointestinal: Reports: No Symptoms Genitourinary: Reports: No Symptoms Musculoskeletal: Reports: No Symptoms Skin: Reports: No Symptoms Neurological: Reports: No Symptoms Psychiatric: Reports: No Symptoms - Patient Data Vitals - Most Recent: Last Vital Signs Temp 96.6 F L 09/30/21 08:07 Pulse 74 09/30/21 11:50 Resp 16 09/30/21 06:31 BP 150/68 H 09/30/21 11:35 Pulse Ox 99 09/30/21 11:50 Weight - Most Recent: 190 lb 14.725 oz I&O - Last 24 Hours: Intake & Output 09/29/21 09/30/21 09/30/21 22:59 06:59 14:59 Intake Total 1106 Output Total 625 Balance 1106 -625 Lab Results Last 24 Hours: Laboratory Results - last 24 hr 09/30/21 09/30/21 09/30/21 Range/Units 00:34 03:10 03:30 WBC (3.2-11.0) K/uL RBC (3.77-5.24) M/uL Hgb (11.2-15.5) Hct (34.3-46.0) % MCV (81.4-99.0) fL MCH (31.6-35.5) pg MCHC (31.6-35.5) g/dL Plt Count (130-375) K/uL Add Manual Diff Neutrophils % (Manual) (36-66) % Lymphocytes % (Manual) (24-44) % Monocytes % (Manual) (2-6) % Eosinophils % (Manual) (2-4) % Sodium (140-148) mmol/L Potassium (3.6-5.2) mmol/L Chloride (100-108) mmol/L Carbon Dioxide (21-32) mmol/L Anion Gap (5.0-14.0) mmol/L BUN (7-18) mg/dL Creatinine (0.6-1.0) mg/dL Est Cr Clr Drug Dosing mL/min Estimated GFR (MDRD) (>60) Glucose (74-106) mg/dL Uric Acid 6.3 H (2.6-6.2) mg/dL Calcium (8.5-10.1) mg/dL Magnesium (1.8-2.4) mg/dL Total Bilirubin (0.2-1.0) mg/dL AST (15-37) U/L ALT (12-78) U/L Alkaline Phosphatase (46-116) U/L Lactate Dehydrogenase (82-234) U/L Total Protein (6.4-8.2) g/dL Albumin (3.4-5.0) g/dL Globulin (2.3-3.5) g/dL Albumin/Globulin Ratio (1.2-2.2) Urine Color Yellow (YELLOW) Urine Appearance Turbid A (CLEAR) Urine pH 6.5 (5.0-8.0) Ur Specific [place] 1.010 (1.008-1.030) Urine Protein Negative (NEGATIVE) mg/dL Urine Glucose (UA) Negative (NEGATIVE) mg/dL Urine Ketones Negative (NEGATIVE) mg/dL Urine Occult Blood Trace-intact H (NEGATIVE) Urine Nitrite Negative (NEGATIVE) Urine Bilirubin Negative (NEGATIVE) Urine Urobilinogen 0.2 (0.2-1.0) EU/dL Ur Leukocyte Esterase Negative (NEGATIVE) Urine RBC 0-5 (0-5) Urine WBC 5-10 H (0-5) Ur Epithelial Cells Moderate Amorphous Sediment Not seen Urine Bacteria Few Urine Mucus Not seen Ur Random Creatinine (20.0-370.0) mg/dL U Random Total Protein (6.0-11.9) mg/dL Protein/Creatinin Ratio (21.0-161.0) mg/g Urine Opiates Screen Negative (NEGATIVE) Ur Oxycodone Screen Negative (NEGATIVE) Urine Methadone Screen Negative (NEGATIVE) Ur Propoxyphene Screen Negative (NEGATIVE) Ur Barbiturates Screen Negative (NEGATIVE) Ur Tricyclics Screen Negative (NEGATIVE) Ur Phencyclidine Scrn Negative (NEGATIVE) Ur Amphetamine Screen Negative (NEGATIVE) U Methamphetamines Scrn Negative (NEGATIVE) Urine MDMA Screen Negative (NEGATIVE) U Benzodiazepines Scrn Negative (NEGATIVE) U Cocaine Metab Screen Negative (NEGATIVE) U Marijuana (THC) Screen Negative (NEGATIVE) Influenza Type A RNA (NEGATIVE) RSV RNA (INAAT) (NEGATIVE) Influenza Type B RNA (NEGATIVE) SARS-CoV-2 RNA (MARIAH) (NEGATIVE) 09/30/21 09/30/21 09/30/21 Range/Units 03:30 03:36 03:36 WBC 15.3 H 14.9 H (3.2-11.0) K/uL RBC 4.20 4.23 (3.77-5.24) M/uL Hgb 12.8 12.8 (11.2-15.5) Hct 36.3 36.4 (34.3-46.0) % MCV 86.4 86.1 (81.4-99.0) fL MCH 30.5 L 30.3 L (31.6-35.5) pg MCHC 35.3 38.9 H (31.6-35.5) g/dL Plt Count 153 160 (130-375) K/uL Add Manual Diff Yes Neutrophils % (Manual) 71 H (36-66) % Lymphocytes % (Manual) 21 L (24-44) % Monocytes % (Manual) 6 (2-6) % Eosinophils % (Manual) 2 (2-4) % Sodium 137 L (140-148) mmol/L Potassium 4.0 (3.6-5.2) mmol/L Chloride 103 (100-108) mmol/L Carbon Dioxide 22 (21-32) mmol/L Anion Gap 16.0 H (5.0-14.0) mmol/L BUN 13 (7-18) mg/dL Creatinine 0.7 (0.6-1.0) mg/dL Est Cr Clr Drug Dosing 100.55 mL/min Estimated GFR (MDRD) > 60 (>60) Glucose 68 L (74-106) mg/dL Uric Acid (2.6-6.2) mg/dL Calcium 8.7 (8.5-10.1) mg/dL Magnesium 1.8 (1.8-2.4) mg/dL Total Bilirubin 0.3 (0.2-1.0) mg/dL AST 20 (15-37) U/L ALT 20 (12-78) U/L Alkaline Phosphatase 147 H D (46-116) U/L Lactate Dehydrogenase 177 (82-234) U/L Total Protein 5.7 L (6.4-8.2) g/dL Albumin 2.8 L (3.4-5.0) g/dL Globulin 2.9 (2.3-3.5) g/dL Albumin/Globulin Ratio 1.0 L (1.2-2.2) Urine Color (YELLOW) Urine Appearance (CLEAR) Urine pH (5.0-8.0) Ur Specific [place] (1.008-1.030) Urine Protein (NEGATIVE) mg/dL Urine Glucose (UA) (NEGATIVE) mg/dL Urine Ketones (NEGATIVE) mg/dL Urine Occult Blood (NEGATIVE) Urine Nitrite (NEGATIVE) Urine Bilirubin (NEGATIVE) Urine Urobilinogen (0.2-1.0) EU/dL Ur Leukocyte Esterase (NEGATIVE) Urine RBC (0-5) Urine WBC (0-5) Ur Epithelial Cells Amorphous Sediment Urine Bacteria Urine Mucus Ur Random Creatinine (20.0-370.0) mg/dL U Random Total Protein (6.0-11.9) mg/dL Protein/Creatinin Ratio (21.0-161.0) mg/g Urine Opiates Screen (NEGATIVE) Ur Oxycodone Screen (NEGATIVE) Urine Methadone Screen (NEGATIVE) Ur Propoxyphene Screen (NEGATIVE) Ur Barbiturates Screen (NEGATIVE) Ur Tricyclics Screen (NEGATIVE) Ur Phencyclidine Scrn (NEGATIVE) Ur Amphetamine Screen (NEGATIVE) U Methamphetamines Scrn (NEGATIVE) Urine MDMA Screen (NEGATIVE) U Benzodiazepines Scrn (NEGATIVE) U Cocaine Metab Screen (NEGATIVE) U Marijuana (THC) Screen (NEGATIVE) Influenza Type A RNA (NEGATIVE) RSV RNA (INAAT) (NEGATIVE) Influenza Type B RNA (NEGATIVE) SARS-CoV-2 RNA (MARIAH) (NEGATIVE) 09/30/21 09/30/21 Range/Units 04:00 09:00 WBC (3.2-11.0) K/uL RBC (3.77-5.24) M/uL Hgb (11.2-15.5) Hct (34.3-46.0) % MCV (81.4-99.0) fL MCH (31.6-35.5) pg MCHC (31.6-35.5) g/dL Plt Count (130-375) K/uL Add Manual Diff Neutrophils % (Manual) (36-66) % Lymphocytes % (Manual) (24-44) % Monocytes % (Manual) (2-6) % Eosinophils % (Manual) (2-4) % Sodium (140-148) mmol/L Potassium (3.6-5.2) mmol/L Chloride (100-108) mmol/L Carbon Dioxide (21-32) mmol/L Anion Gap (5.0-14.0) mmol/L BUN (7-18) mg/dL Creatinine (0.6-1.0) mg/dL Est Cr Clr Drug Dosing mL/min Estimated GFR (MDRD) (>60) Glucose (74-106) mg/dL Uric Acid (2.6-6.2) mg/dL Calcium (8.5-10.1) mg/dL Magnesium (1.8-2.4) mg/dL Total Bilirubin (0.2-1.0) mg/dL AST (15-37) U/L ALT (12-78) U/L Alkaline Phosphatase (46-116) U/L Lactate Dehydrogenase (82-234) U/L Total Protein (6.4-8.2) g/dL Albumin (3.4-5.0) g/dL Globulin (2.3-3.5) g/dL Albumin/Globulin Ratio (1.2-2.2) Urine Color (YELLOW) Urine Appearance (CLEAR) Urine pH (5.0-8.0) Ur Specific [place] (1.008-1.030) Urine Protein (NEGATIVE) mg/dL Urine Glucose (UA) (NEGATIVE) mg/dL Urine Ketones (NEGATIVE) mg/dL Urine Occult Blood (NEGATIVE) Urine Nitrite (NEGATIVE) Urine Bilirubin (NEGATIVE) Urine Urobilinogen (0.2-1.0) EU/dL Ur Leukocyte Esterase (NEGATIVE) Urine RBC (0-5) Urine WBC (0-5) Ur Epithelial Cells Amorphous Sediment Urine Bacteria Urine Mucus Ur Random Creatinine 24.3 (20.0-370.0) mg/dL U Random Total Protein < 6.0 L (6.0-11.9) mg/dL Protein/Creatinin Ratio 246.9 H (21.0-161.0) mg/g Urine Opiates Screen (NEGATIVE) Ur Oxycodone Screen (NEGATIVE) Urine Methadone Screen (NEGATIVE) Ur Propoxyphene Screen (NEGATIVE) Ur Barbiturates Screen (NEGATIVE) Ur Tricyclics Screen (NEGATIVE) Ur Phencyclidine Scrn (NEGATIVE) Ur Amphetamine Screen (NEGATIVE) U Methamphetamines Scrn (NEGATIVE) Urine MDMA Screen (NEGATIVE) U Benzodiazepines Scrn (NEGATIVE) U Cocaine Metab Screen (NEGATIVE) U Marijuana (THC) Screen (NEGATIVE) Influenza Type A RNA Negative (NEGATIVE) RSV RNA (INAAT) Negative (NEGATIVE) Influenza Type B RNA Negative (NEGATIVE) SARS-CoV-2 RNA (MARIAH) Negative (NEGATIVE) Med Orders - Current: Current Medications Diphenhydramine HCl (Diphenhydramine 50 Mg/Ml Sdv) 25 mg IVPUSH Q6H PRN PRN Reason: Itching Diphenhydramine HCl (Diphenhydramine 50 Mg/Ml Sdv) 50 mg IVPUSH Q6H PRN PRN Reason: Itching Ephedrine Sulfate (Ephedrine 50 Mg/Ml Sdv) 10 mg IVPUSH ASDIRECTED PRN PRN Reason: Hypotension Ropivacaine 200 mg/ Premix 100 mls @ 0 mls/hr EPIDUR ASDIRECTED MIRI Clindamycin Phosphate 900 mg/ (Sodium Chloride) 106 mls @ 212 mls/hr IV Q8H [facility] Last Admin: 09/30/21 06:03 Dose: 212 mls/hr Documented by: Lactated Ringer's (Ringers, Lactated) 1,000 mls @ 125 mls/hr IV ASDIRECTED MIRI Last Admin: 09/30/21 10:09 Dose: 125 mls/hr Documented by: Lactated Ringer's (Ringers, Lactated) 500 mls @ 999 mls/hr IV ASDIRECTED MIRI Oxytocin/Sodium Chloride (Pitocin In Ns 20 Units/1,000 Ml) 20 unit in 1,000 mls @ 2,997 mls/hr IV TITRATE MIRI; Protocol Last Titration: 09/30/21 12:18 Dose: 333 munits/min, 999 mls/hr Documented by: Naloxone HCl (Naloxone 0.4 Mg/Ml Sdv) 0.1 mg IVPUSH ASDIRECTED PRN PRN Reason: Oversedation Sodium Chloride (Sodium Chloride 0.9% 10 Ml Syringe) 10 ml FLUSH ASDIRECTED PRN PRN Reason: Keep Vein Open Sodium Chloride (Sodium Chloride 0.9% 10 Ml Syringe) 10 ml FLUSH ASDIRECTED PRN PRN Reason: Keep Vein Open Discontinued Medications Sodium Chloride (Normal Saline) 1,000 mls @ 999 mls/hr IV ONETIME ONE Stop: 09/30/21 06:13 Last Admin: 09/30/21 05:28 Dose: Not Given Documented by: Lactated Ringer's (Ringers, Lactated) 1,000 mls @ 999 mls/hr IV BOLUS ONE Stop: 09/30/21 06:00 Last Admin: 09/30/21 07:00 Dose: 999 mls/hr Documented by: Ropivacaine (Naropin 0.2%) Confirm Administered Dose 100 mls @ as directed .ROUTE .STK-MED ONE Stop: 09/30/21 06:54 Sodium Chloride (Sodium Chloride 0.9% 10 Ml Syringe) 10 ml FLUSH ASDIRECTED PRN PRN Reason: Keep Vein Open - Exam Urinary Catheter Total Time: 0Days 4Hours General: Alert, Oriented HEENT: Pupils Equal, Pupils Reactive Neck: Supple Lungs: Normal Respiratory Effort Cardiovascular: Regular Rate, Regular Rhythm GI/Abdominal Exam: Normal Bowel Sounds, Soft (Female) Exam: Normal External Exam, Cervical Dilatation, Enlarged Uterus, Va ginal Bleeding Back Exam: Full Range of Motion Extremities: No Pedal Edema, Normal Capillary Refill Skin: Warm, Dry, Intact Psy/Mental Status: Alert, Normal Affect, Normal Mood - Problem List & Annotations (1) SNOMED Code(s): 35959429 Code(s): Z34.90 - ENCNTR FOR SUPRVSN OF NORMAL , UNSP, UNSP TRIMESTER Status: Acute Current Visit: Yes Qualifiers: Weeks of gestation: 37 weeks Qualified Code(s): Z3A.37 - 37 weeks gestation of (2) delivery (maternal condition) SNOMED Code(s): 895703508, 971896248 Code(s): O60.10X0 - LABOR W DELIVERY, UNSP TRIMESTER, UNSP Status: Acute Current Visit: Yes (3) Vaginal delivery SNOMED Code(s): 694286473 Code(s): O80 - ENCOUNTER FOR FULL-TERM UNCOMPLICATED DELIVERY Status: Acute Current Visit: Yes (4) () SNOMED Code(s): 734388268 Code(s): Z78.9 - OTHER SPECIFIED HEALTH STATUS Status: Acute Current Visit: Yes - Problem List Review Problem List Initiated/Reviewed/Updated: Yes - My Orders Last 24 Hours: My Active Orders 09/30/21 00:28 OB Check [OM.PC] Click To Edit 09/30/21 05:08 Resuscitation Status Routine 09/30/21 05:09 Communication Order [RC] ASDIRECTED Notify Provider [RC] PRN Vital Signs [RC] PER UNIT ROUTINE Saline Lock Insert [OM.PC] Routine 09/30/21 05:10 Notify Provider Vital Signs [RC] PRN 09/30/21 05:30 Clindamycin Phosphate [Cleocin] 900 mg Sodium Chloride 0.9% [Normal Saline AdvBag] 100 ml IV Q8H 09/30/21 06:00 Lactated Ringers [Ringers, Lactated] 1,000 ml IV ASDIRECTED 09/30/21 06:54 Notify Provider Vital Signs [RC] PRN Sodium Chloride 0.9% [Saline Flush] 10 ml FLUSH ASDIRECTED PRN 09/30/21 06:56 Patient Status [ADT] Routine Communication Order [RC] ASDIRECTED Heart Tones [RC] PER UNIT ROUTINE Non Stress Test [RC] Click to Edit Notify Provider [RC] PRN Saline Lock Insert [OM.PC] Routine 09/30/21 07:00 Lactated Ringers [Ringers, Lactated] 500 ml IV ASDIRECTED 09/30/21 07:32 BPP w NST [US] Routine 09/30/21 Breakfast Regular Diet [DIET] 09/30/21 09:30 Oxytocin/Normal Saline [Pitocin in NS 20 Units/1,000 ML] 20 unit in 1,000 ml IV TITRATE - Assessment Assessment:: 09/30/21 21 year old 37 6/7 weeks IUP with bilateral labial tears, repaired breast feeding - Plan Plan:: 09/30/21 21 year old presented in active labor during the night. She is 37 6/7 weeks gestation. PCN allergy and GBS positive Strip is cat two, Currently extra fluids and on her left side. No AROm until close to the end I talked with parents about possible c section if baby not tolerating pushing. HGB 12.8 PLT 153 Covid negative ABO A pos Epidural in place monitor closely for distress 09/30/21 Routine cares CBC in am support 48-72 hour stay.
[2021-09-30] MEDS ORDERED: Benzocaine 20% Top Spray 56 GM Bottle TOP ONE (13:11)
[2021-09-30] MEDS ORDERED: Hydrocortisone 2.5% Crm 30 GM Tube TOP PRN (13:11)
[2021-09-30] MEDS ORDERED: Witch Hazel Medicated Pads 100/Jar TOP ONE (13:11)
[2021-09-30] MEDS ORDERED: Ibuprofen 200 MG Tab, 24 Tab Bulk Bottle PO PRN (13:11)
[2021-09-30] MEDS ORDERED: Acetaminophen 325 MG Tab, 50 Tab Bulk Bottle PO PRN (13:11)
[2021-09-30] MEDS ORDERED: Lanolin 100% Cream 40 GM Tube TOP ONE (13:11)
--- NOTE | 2021-09-30 13:39 | US ---
BPP w NST INDICATION: labor, Cat two strip COMPARISON: None FINDINGS: Single live IUP in: Cephalic position. heart rate: 150 BPM. Biophysical profile score: 8/8. ANATOLY: 15.6 cm. IMPRESSION: Normal biophysical profile score of 8/8.
--- NOTE | 2021-09-30 15:27 | ANES ---
DATE OF SERVICE: 09/30/2021 INDICATIONS: Estephania is a 21-year-old female patient in our obstetric unit. I was requested by Carolee Valverde to assess the patient for labor epidural. Upon arrival, I found a healthy 21-year-old female patient at 38 weeks, G1, P0. I reviewed her history as well as labs and found no contraindication to epidural placement. Discussed with her the procedure. She was okay to proceed, and consent was received. DESCRIPTION OF PROCEDURE: I had her seated at the edge of the bed. Betadine prep x3 to lumbar region. Sterile drape was placed. 1% lidocaine skin wheal as well as deep at the L3- L4 region. A 17-gauge Tuohy was placed to loss of resistance. Negative CSF, negative heme, negative paresthesia. Catheter was inserted to 12 cm. Catheter was secured. A test dose of 3 mL of 1.5% lidocaine in 1:200,000 epinephrine was given with negative sequelae. I dosed her with 12 mL of 0.2% ropivacaine and began an infusion of that same 0.2% ropivacaine. She tolerated the procedure quite well. Please refer to nurse's notes for vital signs and neurologic status, which were unchanged and within normal limits. I reported off to the nurse about the procedure. Alvin Blancas CRNA /[id number]
[2021-09-30] MEDS ORDERED: Witch Hazel Medicated Pads 100/Jar TOP PRN (20:34)
[2021-09-30] MEDS ORDERED: Benzocaine 20% Top Spray 56 GM Bottle TOP SCH (20:45)
[2021-09-30] MEDS ORDERED: Benzocaine 20% Top Spray 56 GM Bottle TOP PRN (20:49)
--- NOTE | 2021-10-01 08:24 | PCM.PNPP ---
- General Info Date of Service: 10/01/21 (PPD 1) Admission Dx/Problem (Free Text): Patient Status Order with Admit Dx/Problem 09/30/21 05:09 Patient Status [ADT] Routine 09/30/21 06:56 Patient Status [ADT] Routine Admission Diagnosis/Problem Admission Diagnosis/Problem Labor established Functional Status: Reports: Pain Controlled - Review of Systems General: Reports: No Symptoms HEENT: Reports: No Symptoms Pulmonary: Reports: No Symptoms Cardiovascular: Reports: No Symptoms Gastrointestinal: Reports: No Symptoms Genitourinary: Reports: No Symptoms Musculoskeletal: Reports: No Symptoms Skin: Reports: No Symptoms Neurological: Reports: No Symptoms Psychiatric: Reports: No Symptoms - General Info Date of Service: 10/01/21 - Patient Data Vital Signs - Most Recent: Last Vital Signs Temp 97.0 F 10/01/21 04:00 Pulse 59 L 10/01/21 04:00 Resp 16 10/01/21 04:00 BP 118/74 10/01/21 04:00 Pulse Ox 98 10/01/21 04:00 Weight - Most Recent: 190 lb I&O - Last 24 Hours: Intake & Output 09/30/21 10/01/21 10/01/21 22:59 06:59 14:59 Intake Total 900 Balance 900 Lab Results - Last 24 Hours: Laboratory Results - last 24 hr 09/30/21 09/30/21 09/30/21 Range/Units 03:30 03:30 03:36 WBC 14.9 H (3.2-11.0) K/uL RBC 4.23 (3.77-5.24) M/uL Hgb 12.8 (11.2-15.5) Hct 36.4 (34.3-46.0) % MCV 86.1 (81.4-99.0) fL MCH 30.3 L (31.6-35.5) pg MCHC 38.9 H (31.6-35.5) g/dL Plt Count 160 (130-375) K/uL Immature Gran % (Auto) (0.0-0.7) % Neut % (Auto) (40.0-78.1) % Lymph % (Auto) (11.4-47.7) % Schley % (Auto) (3.3-12.6) % Eos % (Auto) (0.0-5.4) % Baso % (Auto) (0.1-1.3) % Neut # (Auto) (1.0-7.6) K/uL Lymph # (Auto) (0.8-3.3) K/uL Schley # (Auto) (0.20-0.90) K/uL Eos # (Auto) (0.60-0.80) K/uL Baso # (Auto) (0.00-0.10) K/uL Immature Gran # (Auto) (0.00-0.23) K/uL Add Manual Diff Yes Neutrophils % (Manual) 71 H (36-66) % Lymphocytes % (Manual) 21 L (24-44) % Monocytes % (Manual) 6 (2-6) % Eosinophils % (Manual) 2 (2-4) % Sodium 137 L (140-148) mmol/L Potassium 4.0 (3.6-5.2) mmol/L Chloride 103 (100-108) mmol/L Carbon Dioxide 22 (21-32) mmol/L Anion Gap 16.0 H (5.0-14.0) mmol/L BUN 13 (7-18) mg/dL Creatinine 0.7 (0.6-1.0) mg/dL Est Cr Clr Drug Dosing 100.55 mL/min Estimated GFR (MDRD) > 60 (>60) Glucose 68 L (74-106) mg/dL Uric Acid 6.3 H (2.6-6.2) mg/dL Calcium 8.7 (8.5-10.1) mg/dL Magnesium 1.8 (1.8-2.4) mg/dL Total Bilirubin 0.3 (0.2-1.0) mg/dL AST 20 (15-37) U/L ALT 20 (12-78) U/L Alkaline Phosphatase 147 H D (46-116) U/L Lactate Dehydrogenase 177 (82-234) U/L Total Protein 5.7 L (6.4-8.2) g/dL Albumin 2.8 L (3.4-5.0) g/dL Globulin 2.9 (2.3-3.5) g/dL Albumin/Globulin Ratio 1.0 L (1.2-2.2) Ur Random Creatinine (20.0-370.0) mg/dL U Random Total Protein (6.0-11.9) mg/dL Protein/Creatinin Ratio (21.0-161.0) mg/g 09/30/21 10/01/21 Range/Units 09:00 04:10 WBC 15.3 H (3.2-11.0) K/uL RBC 3.54 L (3.77-5.24) M/uL Hgb 10.7 L D (11.2-15.5) Hct 31.0 L (34.3-46.0) % MCV 87.6 (81.4-99.0) fL MCH 30.2 L (31.6-35.5) pg MCHC 34.5 (31.6-35.5) g/dL Plt Count 119 L (130-375) K/uL Immature Gran % (Auto) 1.2 H (0.0-0.7) % Neut % (Auto) 73.6 (40.0-78.1) % Lymph % (Auto) 18.1 (11.4-47.7) % Schley % (Auto) 5.6 (3.3-12.6) % Eos % (Auto) 0.9 (0.0-5.4) % Baso % (Auto) 0.6 (0.1-1.3) % Neut # (Auto) 11.25 H (1.0-7.6) K/uL Lymph # (Auto) 2.77 (0.8-3.3) K/uL Schley # (Auto) 0.86 (0.20-0.90) K/uL Eos # (Auto) 0.13 L (0.60-0.80) K/uL Baso # (Auto) 0.09 (0.00-0.10) K/uL Immature Gran # (Auto) 0.18 (0.00-0.23) K/uL Add Manual Diff Neutrophils % (Manual) (36-66) % Lymphocytes % (Manual) (24-44) % Monocytes % (Manual) (2-6) % Eosinophils % (Manual) (2-4) % Sodium (140-148) mmol/L Potassium (3.6-5.2) mmol/L Chloride (100-108) mmol/L Carbon Dioxide (21-32) mmol/L Anion Gap (5.0-14.0) mmol/L BUN (7-18) mg/dL Creatinine (0.6-1.0) mg/dL Est Cr Clr Drug Dosing mL/min Estimated GFR (MDRD) (>60) Glucose (74-106) mg/dL Uric Acid (2.6-6.2) mg/dL Calcium (8.5-10.1) mg/dL Magnesium (1.8-2.4) mg/dL Total Bilirubin (0.2-1.0) mg/dL AST (15-37) U/L ALT (12-78) U/L Alkaline Phosphatase (46-116) U/L Lactate Dehydrogenase (82-234) U/L Total Protein (6.4-8.2) g/dL Albumin (3.4-5.0) g/dL Globulin (2.3-3.5) g/dL Albumin/Globulin Ratio (1.2-2.2) Ur Random Creatinine 24.3 (20.0-370.0) mg/dL U Random Total Protein < 6.0 L (6.0-11.9) mg/dL Protein/Creatinin Ratio 246.9 H (21.0-161.0) mg/g Med Orders - Current: Current Medications Acetaminophen (Acetaminophen 325 Mg Tab, 50 Tab Bulk Bottle) 0 mg PO Q4H PRN PRN Reason: Pain Last Admin: 09/30/21 13:53 Dose: 650 mg Documented by: Benzocaine (Benzocaine 20% Top [place] 56 Gm Bottle) 0 gm TOP ASDIRECTED PRN PRN Reason: Perineal Comfort Measure Hydrocortisone (Hydrocortisone 2.5% Crm 30 Gm Tube) 1 gm TOP ASDIRECTED PRN PRN Reason: Itching Ibuprofen (Ibuprofen 200 Mg Tab, 24 Tab Bulk Bottle) 600 mg PO Q6H PRN PRN Reason: Pain Last Admin: 09/30/21 13:52 Dose: 600 mg Documented by: Sodium Chloride (Sodium Chloride 0.9% 10 Ml Syringe) 10 ml FLUSH ASDIRECTED PRN PRN Reason: Keep Vein Open Witch Campos ([place] Medicated Pads 100/Jar) 1 pad TOP ASDIRECTED PRN PRN Reason: Hemorrhoids Discontinued Medications Benzocaine (Benzocaine 20% Top [place] 56 Gm Bottle) 0 gm TOP Q4H ONE Stop: 09/30/21 13:12 Last Admin: 09/30/21 13:52 Dose: 1 spr Documented by: Benzocaine (Benzocaine 20% Top [place] 56 Gm Bottle) 0 gm TOP ASDIRECTED [facility] Diphenhydramine HCl (Diphenhydramine 50 Mg/Ml Sdv) 25 mg IVPUSH Q6H PRN PRN Reason: Itching Diphenhydramine HCl (Diphenhydramine 50 Mg/Ml Sdv) 50 mg IVPUSH Q6H PRN PRN Reason: Itching Emollient Ointment (Lanolin 100% Cream 40 Gm Tube) 1 gm TOP ASDIRECTED ONE Stop: 09/30/21 13:12 Last Admin: 09/30/21 13:52 Dose: 1 applic Documented by: Ephedrine Sulfate (Ephedrine 50 Mg/Ml Sdv) 10 mg IVPUSH ASDIRECTED PRN PRN Reason: Hypotension Ropivacaine 200 mg/ Premix 100 mls @ 0 mls/hr EPIDUR ASDIRECTED [facility] Sodium Chloride (Normal Saline) 1,000 mls @ 999 mls/hr IV ONETIME ONE Stop: 09/30/21 06:13 Last Admin: 09/30/21 05:28 Dose: Not Given Documented by: Lactated Ringer's (Ringers, Lactated) 1,000 mls @ 999 mls/hr IV BOLUS ONE Stop: 09/30/21 06:00 Last Admin: 09/30/21 07:00 Dose: 999 mls/hr Documented by: Clindamycin Phosphate 900 mg/ (Sodium Chloride) 106 mls @ 212 mls/hr IV Q8H [facility] Last Admin: 09/30/21 15:21 Dose: Not Given Documented by: Lactated Ringer's (Ringers, Lactated) 1,000 mls @ 125 mls/hr IV ASDIRECTED [facility] Last Admin: 09/30/21 10:09 Dose: 125 mls/hr Documented by: Ropivacaine (Naropin 0.2%) Confirm Administered Dose 100 mls @ as directed .ROUTE .STK-MED ONE Stop: 09/30/21 06:54 Lactated Ringer's (Ringers, Lactated) 500 mls @ 999 mls/hr IV ASDIRECTED [facility] Oxytocin/Sodium Chloride (Pitocin In Ns 20 Units/1,000 Ml) 20 unit in 1,000 mls @ 2,997 mls/hr IV TITRATE [facility]; Protocol Last Titration: 09/30/21 12:50 Dose: 41.67 munits/min, 125 mls/hr Documented by: Naloxone HCl (Naloxone 0.4 Mg/Ml Sdv) 0.1 mg IVPUSH ASDIRECTED PRN PRN Reason: Oversedation Sodium Chloride (Sodium Chloride 0.9% 10 Ml Syringe) 10 ml FLUSH ASDIRECTED PRN PRN Reason: Keep Vein Open Witch [place]pos ([place] Medicated Pads 100/Jar) 1 pad TOP ASDIRECTED ONE Stop: 09/30/21 13:12 Last Admin: 09/30/21 13:52 Dose: 1 pad Documented by: - Interaction Disposition, : in Room with Family Interaction: Holding Infant Feeding: Attempted ; Nursed Fair/Poor, Difficulty with Latch-on, Other (see below) (baby has upper lip tie and tingue tie with under bite) Support Person: - Recovery Exam Fundal Tone: Firm Fundal Level: At Umbilicus Fundal Placement: Midline Lochia Amount: Moderate Lochia Color: Rubra/Red Perineum Description: Intact, Minimal Bruising/Swelling Episiotomy/Laceration: Approximated Bladder Status: Voiding Urinary Elimination: Voided - Exam General: Alert, Oriented HEENT: Pupils Equal, Pupils Reactive Neck: Supple Lungs: Normal Respiratory Effort Cardiovascular: Regular Rate, Regular Rhythm GI/Abdominal Exam: Soft, Non-Tender Extremities: Normal Inspection, No Pedal Edema, Normal Capillary Refill Skin: Warm, Dry Neurological: No New Focal Deficit Psy/Mental Status: Alert, Normal Affect, Normal Mood - Problem List & Annotations (1) SNOMED Code(s): 11330885 Code(s): Z34.90 - ENCNTR FOR SUPRVSN OF NORMAL , UNSP, UNSP TRIMESTER Status: Acute Current Visit: Yes Qualifiers: Weeks of gestation: 37 weeks Qualified Code(s): Z3A.37 - 37 weeks gestation of (2) delivery (maternal condition) SNOMED Code(s): 400901961, 684704763 Code(s): O60.10X0 - LABOR W DELIVERY, UNSP TRIMESTER, UNSP Status: Acute Current Visit: Yes (3) Vaginal delivery SNOMED Code(s): 870948854 Code(s): O80 - ENCOUNTER FOR FULL-TERM UNCOMPLICATED DELIVERY Status: Acute Current Visit: Yes (4) (infant) SNOMED Code(s): 437688399 Code(s): Z78.9 - OTHER SPECIFIED HEALTH STATUS Status: Acute Current Visit: Yes (5) Preeclampsia SNOMED Code(s): 860623988 Code(s): O14.90 - UNSPECIFIED PRE-ECLAMPSIA, UNSPECIFIED TRIMESTER Status: Acute Current Visit: Yes - Problem List Review Problem List Initiated/Reviewed/Updated: Yes - My Orders Last 24 Hours: My Active Orders 09/30/21 Breakfast Regular Diet [DIET] 09/30/21 13:11 Patient Status [ADT] Routine Acetaminophen [Tylenol Bulk Bottle] See Dose Instructions PO Q4H PRN Hydrocortisone [Proctozone-HC 2.5% Crm] 1 gm TOP ASDIRECTED PRN Ibuprofen [Motrin Bulk Bottle] 600 mg PO Q6H PRN 09/30/21 20:34 [place] Campos [Tucks] 1 pad TOP ASDIRECTED PRN 09/30/21 20:49 Benzocaine [Imhy-O-Kpfkhml 20% [place]] See Dose Instructions TOP ASDIRECTED PRN - Assessment Assessment:: 09/30/21 21 year old 37 6/7 weeks IUP with bilateral labial tears, repaired breast feeding 10/01/21 Feeling better today Blood pressures over night were OK is a struggle, as baby has lip and tongue ties. flow light and is voiding slept poorly - Plan Plan:: 09/30/21 21 year old presented in active labor during the night. She is 37 6/7 weeks gestation. PCN allergy and GBS positive Strip is cat two, Currently extra fluids and on her left side. No AROM until close to the end I talked with parents about possible c section if baby not tolerating pushing. HGB 12.8 PLT 153 Covid negative ABO A pos Epidural in place monitor closely for distress 09/30/21 Routine cares CBC in am support 48-72 hour stay. 10/01/21 routine cares gbs positive and was treated needs help with pumping and feeding baby HGB 10.7 stay at least until tomorrow
--- NOTE | 2021-10-02 08:28 | PCM.PNPP ---
- General Info Date of Service: 10/02/21 Admission Dx/Problem (Free Text): Patient Status Order with Admit Dx/Problem 09/30/21 05:09 Patient Status [ADT] Routine 09/30/21 06:56 Patient Status [ADT] Routine Admission Diagnosis/Problem Admission Diagnosis/Problem Labor established Functional Status: Reports: Pain Controlled - Review of Systems General: Reports: No Symptoms HEENT: Reports: No Symptoms Pulmonary: Reports: No Symptoms Cardiovascular: Reports: No Symptoms Gastrointestinal: Reports: No Symptoms Genitourinary: Reports: No Symptoms Musculoskeletal: Reports: No Symptoms Skin: Reports: No Symptoms Neurological: Reports: No Symptoms Psychiatric: Reports: No Symptoms - General Info Date of Service: 10/02/21 - Patient Data Vital Signs - Most Recent: Last Vital Signs Temp 99.0 F 10/02/21 04:00 Pulse 83 10/02/21 04:00 Resp 16 10/02/21 04:00 BP 115/66 10/02/21 04:00 Pulse Ox 98 10/02/21 04:00 Weight - Most Recent: 190 lb I&O - Last 24 Hours: Intake & Output 10/01/21 10/02/21 10/02/21 22:59 06:59 14:59 Intake Total 1000 1000 Balance 1000 1000 Med Orders - Current: Current Medications Acetaminophen (Acetaminophen 325 Mg Tab, 50 Tab Bulk Bottle) 0 mg PO Q4H PRN PRN Reason: Pain Last Admin: 09/30/21 13:53 Dose: 650 mg Documented by: Benzocaine (Benzocaine 20% Top [place] 56 Gm Bottle) 0 gm TOP ASDIRECTED PRN PRN Reason: Perineal Comfort Measure Last Admin: 10/01/21 18:04 Dose: 1 applic Documented by: Hydrocortisone (Hydrocortisone 2.5% Crm 30 Gm Tube) 1 gm TOP ASDIRECTED PRN PRN Reason: Itching Ibuprofen (Ibuprofen 200 Mg Tab, 24 Tab Bulk Bottle) 600 mg PO Q6H PRN PRN Reason: Pain Last Admin: 09/30/21 13:52 Dose: 600 mg Documented by: Sodium Chloride (Sodium Chloride 0.9% 10 Ml Syringe) 10 ml FLUSH ASDIRECTED PRN PRN Reason: Keep Vein Open [place] ([place] Medicated Pads 100/Jar) 1 pad TOP ASDIRECTED PRN PRN Reason: Hemorrhoids Last Admin: 10/01/21 18:05 Dose: 1 pad Documented by: Discontinued Medications Benzocaine (Benzocaine 20% Top [place] 56 Gm Bottle) 0 gm TOP Q4H ONE Stop: 09/30/21 13:12 Last Admin: 09/30/21 13:52 Dose: 1 spr Documented by: Benzocaine (Benzocaine 20% Top [place] 56 Gm Bottle) 0 gm TOP ASDIRECTED [facility] Diphenhydramine HCl (Diphenhydramine 50 Mg/Ml Sdv) 25 mg IVPUSH Q6H PRN PRN Reason: Itching Diphenhydramine HCl (Diphenhydramine 50 Mg/Ml Sdv) 50 mg IVPUSH Q6H PRN PRN Reason: Itching Emollient Ointment (Lanolin 100% Cream 40 Gm Tube) 1 gm TOP ASDIRECTED ONE Stop: 09/30/21 13:12 Last Admin: 09/30/21 13:52 Dose: 1 applic Documented by: Ephedrine Sulfate (Ephedrine 50 Mg/Ml Sdv) 10 mg IVPUSH ASDIRECTED PRN PRN Reason: Hypotension Ropivacaine 200 mg/ Premix 100 mls @ 0 mls/hr EPIDUR ASDIRECTED [facility] Sodium Chloride (Normal Saline) 1,000 mls @ 999 mls/hr IV ONETIME ONE Stop: 09/30/21 06:13 Last Admin: 09/30/21 05:28 Dose: Not Given Documented by: Lactated Ringer's (Ringers, Lactated) 1,000 mls @ 999 mls/hr IV BOLUS ONE Stop: 09/30/21 06:00 Last Admin: 09/30/21 07:00 Dose: 999 mls/hr Documented by: Clindamycin Phosphate 900 mg/ (Sodium Chloride) 106 mls @ 212 mls/hr IV Q8H [facility] Last Admin: 09/30/21 15:21 Dose: Not Given Documented by: Lactated Ringer's (Ringers, Lactated) 1,000 mls @ 125 mls/hr IV ASDIRECTED [facility] Last Admin: 09/30/21 10:09 Dose: 125 mls/hr Documented by: Ropivacaine (Naropin 0.2%) Confirm Administered Dose 100 mls @ as directed .ROUTE .STK-MED ONE Stop: 09/30/21 06:54 Lactated Ringer's (Ringers, Lactated) 500 mls @ 999 mls/hr IV ASDIRECTED [facility] Oxytocin/Sodium Chloride (Pitocin In Ns 20 Units/1,000 Ml) 20 unit in 1,000 mls @ 2,997 mls/hr IV TITRATE [facility]; Protocol Last Titration: 09/30/21 12:50 Dose: 41.67 munits/min, 125 mls/hr Documented by: Naloxone HCl (Naloxone 0.4 Mg/Ml Sdv) 0.1 mg IVPUSH ASDIRECTED PRN PRN Reason: Oversedation Sodium Chloride (Sodium Chloride 0.9% 10 Ml Syringe) 10 ml FLUSH ASDIRECTED PRN PRN Reason: Keep Vein Open Witch Ka[place] ([place] Medicated Pads 100/Jar) 1 pad TOP ASDIRECTED ONE Stop: 09/30/21 13:12 Last Admin: 09/30/21 13:52 Dose: 1 pad Documented by: - Infant Interaction Infant Disposition, : in Room with Family Interaction: Holding Infant Feeding: Attempted ; Nursed Fair/Poor, Bottle Fed Infant (breast milk), Difficulty with Latch-on, Other (see below) (baby has upper lip tie and tingue tie with under bite) Support Person: - Recovery Exam Fundal Tone: Firm Fundal Level: At Umbilicus Fundal Placement: Midline Lochia Amount: Moderate Lochia Color: Rubra/Red Perineum Description: Intact, Minimal Bruising/Swelling Episiotomy/Laceration: Approximated Bladder Status: Voiding Urinary Elimination: Voided - Exam General: Alert, Oriented HEENT: Pupils Equal Neck: Supple Lungs: Clear to Auscultation, Normal Respiratory Effort Cardiovascular: Regular Rate, Regular Rhythm GI/Abdominal Exam: Soft, No Mass Extremities: No Pedal Edema, Normal Capillary Refill Skin: Warm, Dry, Intact Wound/Incisions: Healing Well Neurological: No New Focal Deficit Psy/Mental Status: Alert, Normal Affect - Problem List & Annotations (1) SNOMED Code(s): 73397079 Code(s): Z34.90 - ENCNTR FOR SUPRVSN OF NORMAL , UNSP, UNSP TRIMESTER Status: Acute Current Visit: Yes Qualifiers: Weeks of gestation: 37 weeks Qualified Code(s): Z3A.37 - 37 weeks gestation of (2) delivery (maternal condition) SNOMED Code(s): 325084711, 511994572 Code(s): O60.10X0 - LABOR W DELIVERY, UNSP TRIMESTER, UNSP Status: Acute Current Visit: Yes (3) Vaginal delivery SNOMED Code(s): 385244295 Code(s): O80 - ENCOUNTER FOR FULL-TERM UNCOMPLICATED DELIVERY Status: Acute Current Visit: Yes (4) (infant) SNOMED Code(s): 744291506 Code(s): Z78.9 - OTHER SPECIFIED HEALTH STATUS Status: Acute Current Visit: Yes (5) Preeclampsia SNOMED Code(s): 200762663 Code(s): O14.90 - UNSPECIFIED PRE-ECLAMPSIA, UNSPECIFIED TRIMESTER Status: Acute Current Visit: Yes Qualifiers: Trimester: third trimester Qualified Code(s): O14.93 - Unspecified pre- eclampsia, third trimester - Problem List Review Problem List Initiated/Reviewed/Updated: Yes - Assessment Assessment:: 09/30/21 21 year old 37 6/7 weeks IUP with bilateral labial tears, repaired breast feeding 10/01/21 Feeling better today Blood pressures over night were OK is a struggle, as baby has lip and tongue ties. flow light and is voiding slept poorly 10/02/21 Feeling better happy, Milk coming in pumping and feeding baby voiding flow light wants to be discharged - Plan Plan:: 09/30/21 21 year old presented in active labor during the night. She is 37 6/7 weeks gestation. PCN allergy and GBS positive Strip is cat two, Currently extra fluids and on her left side. No AROM until close to the end I talked with parents about possible c section if baby not tolerating pushing. HGB 12.8 PLT 153 Covid negative ABO A pos Epidural in place monitor closely for distress 09/30/21 Routine cares CBC in am support 48-72 hour stay. 10/01/21 routine cares gbs positive and was treated needs help with pumping and feeding baby HGB 10.7 stay at least until tomorrow 10/02/21 Discharge today see me in 6 weeks for a post visit
== END 2021-10-02 12:15 | disposition home or self-care (01) | DRG 807 ==
LOC: JP.OBCHECK 00:24 → JP.OB 00:24 → JP.OBCHECK 05:14 → JP.OB 05:15 → OBSVTOIN 12:17 → JP.MS 17:39
PROVIDERS: ADMIT Nurse Practitioner Family; ATTEND Nurse Practitioner Family
PROC: 10E0XZZ Delivery of Products of Conception, External Approach (ICD-10-PCS; principal; 2021-09-30)
PROC: 0UQMXZZ Repair Vulva, External Approach (ICD-10-PCS; 2021-09-30)
PROC: 3E0R3BZ Introduction of Anesthetic Agent into Spinal Canal, Percutaneous Approach (ICD-10-PCS; 2021-09-30)
PROC: 00HU33Z Insertion of Infusion Device into Spinal Canal, Percutaneous Approach (ICD-10-PCS; 2021-09-30)
DX: O99.52 Diseases of the respiratory system complicating childbirth (principal); Z37.0 Single live birth; J45.909 Unspecified asthma, uncomplicated; O99.824 Streptococcus B carrier state complicating childbirth; Z3A.37 37 weeks gestation of pregnancy; Z20.822 Contact with and (suspected) exposure to COVID-19; O77.0 Labor and delivery complicated by meconium in amniotic fluid; O69.81X0 Labor and delivery complicated by cord around neck, without compression, not applicable or unspecified; O70.0 First degree perineal laceration during delivery; Z88.0 Allergy status to penicillin; Z91.09 Other allergy status, other than to drugs and biological substances; Z91.011 Allergy to milk products; Z91.012 Allergy to eggs; Z91.018 Allergy to other foods
CPT/HCPCS: 0241U; 36415; 51702; 76818; 76818-26; 80053; 80305-QW; 81001; 82570; 83615; 83735; 84156; 84550; 85025; 85027; 99211; A9270-GY; J2590; J2795; J3490; J7120